=== PATIENT | female | born 1960 | race Caucasian/White ===

== ENCOUNTER 2021-09-01 13:49 | Emergency (ER) | payer BC ==
[~2021-09-01] VITALS: Ht 160 cm; Wt 82.5 kg
[2021-09-01 14:56] LABS: Influenza A, PCR NEGATIVE (NEGATIVE); Influenza B, PCR NEGATIVE (NEGATIVE); Resp Syncytial Virus, PCR NEGATIVE (NEGATIVE); SARS-Cov-2 (COVID-19) PCR, MMC NEGATIVE (NEGATIVE)
[2021-09-01] MEDS ORDERED: AMOCLA875 PO (15:11)
== END 2021-09-01 15:14 | disposition home or self-care (01) ==
LOC: ER 13:49
PROVIDERS: Physician Assistant
DX: J32.9 Chronic sinusitis, unspecified (principal); Z20.822 Contact with and (suspected) exposure to COVID-19; I50.9 Heart failure, unspecified
CPT/HCPCS: 0241U; 99283